=== PATIENT | female | born 1945 | race Caucasian/White ===

== ENCOUNTER 2017-05-28 08:55 | Day surgery (SDC) | payer MEDICARE, OTHER ==
[~2017-05-28] VITALS: Ht 165.1 cm; Wt 66.2 kg
[~2017-05-28 08:55] MED LIST: LEVOTHYROXINE100 MCG PO; LISINOPRIL5 MG PO; LORAZEPAM1 MG PO; SERTRALINE HCL100 MG PO
--- NOTE | 2017-05-28 10:32 | NUR ---
05/28/17 1032 SherryGodfrey encinas SAT 100, O2 DECREASED TO 2L VIA NC.
--- NOTE | 2017-05-30 12:08 | OR ---
[facility] [address] [place], [place] [address] Signed PREOPERATIVE DIAGNOSES Change in bowel habits with diarrhea. Diverticulosis. Hyperplastic colonic polyps. POSTOPERATIVE DIAGNOSES Unremarkable upper endoscopy. Internal hemorrhoids. PROCEDURES EGD with CLOtest and biopsies of the antrum. Colonoscopy with random colon biopsies. ESTIMATED BLOOD LOSS: None. INDICATIONS FOR PROCEDURE Virgil is a 71-year-old female who asked to see me for upper and lower endoscopy. She has had a change in bowel habits with diarrhea. She has been using some Imodium and also Citrucel. She thinks that helped quite a bit. She told me the stool samples she gave to her primary care provider were all negative. She had a colonoscopy in 2009, was found to have hyperplastic polyps and just a small amount of diverticulosis in her sigmoid colon. There is no family history of colon cancer or polyps. No family history of inflammatory bowel disease. Virgil Roblero also uses Lorazepam daily along with her Sertraline. I had met with Virgil Roblero in the office. I gave her pamphlets on both upper and lower endoscopy. I reviewed the nature of the 2 tests along with the risks including, but not limited to gas bloating, crampy abdominal pain, bleeding, perforation, requiring surgery, and missed diagnosis. We also discussed the need for IV conscious sedation. Given her medication list and her past medical history, we asked that an anesthesia provider help us with increased monitoring sedation with Propofol. She had expressed understanding and wished to proceed. PROCEDURE NOTE Virgil was taken into our endoscopy suite and placed in the supine semi-recumbent position. The posterior oropharynx was anesthetized with Hurricaine spray. A bite block was utilized for the case. She was given IV sedation with Propofol per nurse crocheter hand. After this, the adult gastroscope was introduced, advanced all way out into the third portion of the duodenum without difficulty. The duodenum and pyloric channel were unremarkable. We took a biopsy out of the duodenum for the history of diarrhea. The entire stomach was unremarkable as well. We took a biopsy of the antrum for CLOtest as well as pathologic review. We saw no inflammatory changes, no ulcerations, and no evidence of gastric or esophageal varices. There was no hiatal hernia. The scope was withdrawn up to the area of the GE junction, which was compliant without stricture. The Electronically Signed By: AMAN PRATER MD 05/30/17 1208 PATIENT NAME: VIRGIL HEATH OPERATIVE REPORT DATE OF : 45 PHYSICIAN: AMAN PRATER MD REPORT #: [id number] REPORT IS CONFIDENTIAL AND NOT TO BE RELEASED WITHOUT AUTHORIZATION [facility] [address] [place], [place] [address] Signed Z-line remained intact. There was no Lawrence mucosa. There was no distal esophagitis. After this, the gas was suctioned out and the gastroscope removed. Her middle and upper esophagus were unremarkable. Virgil Roblero tolerated her upper endoscopy quite well. The area was then rotated into the left lateral decubitus position. She was maintained on IV Propofol. A digital rectal exam was performed, this was unremarkable. The adult colonoscope was introduced and advanced all around into the cecum under direct visualization of camera without difficulty. Her prep was good. The scope was then slowly withdrawn. There was no pathology throughout the entire colon or rectum. Specifically, we did not see any small diverticula on this occasion. Upon retroflexion of scope, she does have some tiny internal hemorrhoid columns. We did take random cold biopsies throughout the colon because of the history of diarrhea. After this, the gas was suctioned out and the colonoscope removed. Virgil tolerated her lower endoscopy quite well. RECOMMENDATIONS I will see Virgil Roblero back in my office in 7 to 14 days to review her results. MD JEWELS Damon/Dutch /[id number] cc: Loretta Bobo PA-C Electronically Signed By: AMAN PRATER MD 05/30/17 1208 PATIENT NAME: VIRGIL HEATH OPERATIVE REPORT DATE OF : 45 PHYSICIAN: AMAN PRATER MD REPORT #: [id number] REPORT IS CONFIDENTIAL AND NOT TO BE RELEASED WITHOUT AUTHORIZATION
== END 2017-05-28 11:15 | disposition home or self-care (01) ==
LOC: OPS 08:55 → DS 08:55 → OPS 09:00
PROVIDERS: Colon & Rectal Surgery
PROC: 0DBE8ZX Excision of Large Intestine, Via Natural or Artificial Opening Endoscopic, Diagnostic (ICD-10-PCS; 2017-05-28)
PROC: 0DB98ZX Excision of Duodenum, Via Natural or Artificial Opening Endoscopic, Diagnostic (ICD-10-PCS; principal; 2017-05-28 09:30)
PROC: 0DB68ZX Excision of Stomach, Via Natural or Artificial Opening Endoscopic, Diagnostic (ICD-10-PCS; 2017-05-28 09:30)
DX: K52.9 Noninfective gastroenteritis and colitis, unspecified (principal); K29.50 Unspecified chronic gastritis without bleeding; K29.80 Duodenitis without bleeding; K57.30 Diverticulosis of large intestine without perforation or abscess without bleeding; K64.8 Other hemorrhoids; I10 Essential (primary) hypertension; Z86.010 Personal history of colon polyps; E03.9 Hypothyroidism, unspecified; F41.9 Anxiety disorder, unspecified; Z79.899 Other long term (current) drug therapy; Z98.41 Cataract extraction status, right eye; Z98.42 Cataract extraction status, left eye; Z90.710 Acquired absence of both cervix and uterus; Z87.891 Personal history of nicotine dependence; Z88.5 Allergy status to narcotic agent
CPT/HCPCS: 00740; 86677; 88305; 88342; J2250; J2704; J3010; J7120

== ENCOUNTER 2018-02-06 11:33 | Emergency (ER) | payer MEDICARE, OTHER ==
[~2018-02-06] VITALS: Ht 165.1 cm; Wt 66.2 kg
--- NOTE | 2018-02-11 06:35 | EKG ---
[facility] [address] [facility] [place] [address] Signed Normal sinus rhythm Moderate voltage criteria for LVH, may be normal variant Borderline ECG No previous ECGs available Confirmed by JOAO WEEMS MD ([id number]) on 02/11/2018 6:35:15 AM Electronically Signed By: JOAO WEEMS MD 02/11/18 0635 PATIENT NAME: VIRGIL HEATH JO MIGEL Electrocardiogram DATE OF : 45 PHYSICIAN: JOAO WEEMS MD REPORT #: [id number] REPORT IS CONFIDENTIAL AND NOT TO BE RELEASED WITHOUT AUTHORIZATION
== END 2018-02-06 17:00 | disposition short-term general hospital (02) ==
LOC: ED 11:33
DX: S06.380A Contusion, laceration, and hemorrhage of brainstem without loss of consciousness, initial encounter (principal); S00.12XA Contusion of left eyelid and periocular area, initial encounter; I10 Essential (primary) hypertension; Z88.8 Allergy status to other drugs, medicaments and biological substances; Z79.899 Other long term (current) drug therapy; W19.XXXA Unspecified fall, initial encounter
CPT/HCPCS: 70450; 71045; 72125; 73560; 80053; 85025; 85610; 85730; 93005; 93010; 96374; 96375; 99285; J2060

== ENCOUNTER 2019-07-14 13:30 | Emergency (ER) | payer MEDICARE, OTHER ==
[~2019-07-14] VITALS: Ht 165.1 cm; Wt 68.0 kg
--- NOTE | 2019-07-15 13:08 | EKG ---
[facility] [address] [facility] [place] [address] Signed Sinus rhythm with premature atrial complexes Left axis deviation Abnormal ECG When compared with ECG of 06-FEB-2018 12:28, premature atrial complexes are now present Confirmed by ALICIA MUNIZ MD ([id number]) on 07/15/2019 1:08:08 PM Electronically Signed By: ALICIA MUNIZ MD 07/15/19 1308 PATIENT NAME: VIRGIL HEATH MENDEZ LAINEZ Electrocardiogram DATE OF : 45 PHYSICIAN: ALICIA MUNIZ MD REPORT #: [id number] REPORT IS CONFIDENTIAL AND NOT TO BE RELEASED WITHOUT AUTHORIZATION
== END 2019-07-14 16:23 | disposition home or self-care (01) ==
LOC: ED 13:30
DX: G45.9 Transient cerebral ischemic attack, unspecified (principal); I10 Essential (primary) hypertension; Z88.8 Allergy status to other drugs, medicaments and biological substances; Z79.899 Other long term (current) drug therapy
CPT/HCPCS: 70450; 71045; 80053; 84484; 85025; 85610; 85730; 93005; 93010; 99285-25

== ENCOUNTER 2020-09-11 14:29 | Emergency (ER) | payer MEDICARE, OTHER ==
[~2020-09-11] VITALS: Ht 165.1 cm; Wt 68.0 kg
--- NOTE | 2020-09-12 14:10 | EKG ---
[facility] [address] [facility] [place] [address] Signed Normal sinus rhythm Left axis deviation Possible Anterior infarct , age undetermined Abnormal ECG When compared with ECG of 14-JUL-2019 13:49, premature atrial complexes are no longer present Confirmed by ALICIA MUNIZ MD ([id number]) on 09/12/2020 2:10:15 PM Electronically Signed By: ALICIA MUNIZ MD 09/12/20 1410 PATIENT NAME: VIRGIL HEATH JO MIGEL Electrocardiogram DATE OF : 45 PHYSICIAN: ALICIA MUNIZ MD REPORT #: [id number] REPORT IS CONFIDENTIAL AND NOT TO BE RELEASED WITHOUT AUTHORIZATION
== END 2020-09-11 16:47 | disposition home or self-care (01) ==
LOC: ED 14:29
DX: S06.0X0A Concussion without loss of consciousness, initial encounter (principal); I10 Essential (primary) hypertension; Z88.8 Allergy status to other drugs, medicaments and biological substances; Z79.899 Other long term (current) drug therapy; W18.30XA Fall on same level, unspecified, initial encounter
CPT/HCPCS: 70450; 80053; 84439; 84443; 84484; 85025; 93005; 93010; 99284-25